=== PATIENT | female | born 1960 | race Caucasian/White ===

== ENCOUNTER → 2017-08-09 | Outpatient (CLI) | payer BC, OTHER ==
--- NOTE | 2017-08-09 13:57 | EKG REPORT ---
SEVERITY:- NORMAL ECG - SINUS RHYTHM : Confirmed by: Anthony Gomez 09-Aug-2017 13:57:03
[2017-08-09 14:02] LABS: ABSOLUTE EOSINOPHILS # (AUTO) 0.1 10^3/uL (0.0-0.6); ABSOLUTE LYMPHOCYTES (AUTO) 2.3 10^3/uL (0.5-4.7); ABSOLUTE MONOCYTES (AUTO) 0.4 10^3/uL (0.1-1.4); ABSOLUTE NEUT (AUTO) 2.6 10^3/uL (1.7-8.2); BASOPHILS % (AUTO) 0.6 % (0-2); EOSINOPHILS % (AUTO) 1.9 % (0-6); HEMATOCRIT 43.5 % (36.0-47.0); HEMOGLOBIN 14.6 g/dL (12.0-15.5); HGB HCT DIFFERENCE 0.3; LYMPHOCYTES % (AUTO) 41.5 % (13-45); MEAN CORPUSCULAR HEMOGLOBIN 27.8 pg (27.0-33.4); MEAN CORPUSCULAR HGB CONC 33.6 g/dL (32.0-36.0); MEAN CORPUSCULAR VOLUME 83 fl (80-97); MONOCYTES % (AUTO) 7.4 % (3-13); RED BLOOD COUNT 5.25 10^6/uL (3.72-5.28); RED CELL DISTRIBUTION WIDTH 14.3 % (11.5-14.0); SEGMENTED NEUTROPHILS % (AUTO) 48.6 % (42-78); WHITE BLOOD COUNT 5.4 10^3/uL (4.0-10.5)
[2017-08-09 14:28] LABS: ANION GAP 15 (5-19); BLOOD UREA NITROGEN 15 mg/dL (7-20); CALCIUM 9.8 mg/dL (8.4-10.2); CARBON DIOXIDE 26 mmol/L (22-30); CHLORIDE 103 mmol/L (98-107); CREATININE RESULT 0.83 mg/dL (0.52-1.25); GLUCOSE 118 mg/dL (75-110); POTASSIUM 4.4 mmol/L (3.6-5.0); SODIUM 143.7 mmol/L (137-145)
--- NOTE | 2017-08-09 14:56 | RADIOLOGY REPORT (SQ) ---
EXAM DESCRIPTION: CHEST PA/LATERAL COMPLETED DATE/TIME: 08/09/2017 2:06 pm REASON FOR STUDY: PRE OP COMPARISON: 04/30/2012 EXAM PARAMETERS: NUMBER OF VIEWS: two views TECHNIQUE: Digital Frontal and Lateral radiographic views of the chest acquired. RADIATION DOSE: NA LIMITATIONS: none FINDINGS: LUNGS AND PLEURA: No opacities, masses or pneumothorax. No pleural effusion. MEDIASTINUM AND HILAR STRUCTURES: No masses or contour abnormalities. HEART AND VASCULAR STRUCTURES: Heart normal size. No evidence for failure. BONES: No acute findings. HARDWARE: None in the chest. OTHER: No other significant finding. IMPRESSION: NO SIGNIFICANT RADIOGRAPHIC FINDING IN THE CHEST. TECHNICAL DOCUMENTATION: JOB ID: [id number] [employer]- All Rights Reserved
[2017-08-09 15:24] LABS: APPEARANCE,URINE SLIGHTLY-CLOUDY; BILIRUBIN,URINE NEGATIVE (NEGATIVE); GLUCOSE, URINE >=500 mg/dL (NEGATIVE); KETONES,URINE NEGATIVE (NEGATIVE); LEUKOCYTE ESTERASE,URINE NEGATIVE (NEGATIVE); NITRITE,URINE NEGATIVE (NEGATIVE); PROTEIN,URINE NEGATIVE (NEGATIVE); URINE SPECIFIC GRAVITY 1.026
== END ==
LOC: OD 13:08
PROVIDERS: ATTEND Orthopaedic Surgery
DX: Z01.818 Encounter for other preprocedural examination (principal)
CPT/HCPCS: 36415; 71020; 80048; 81001; 85025; 93005; 93010

== ENCOUNTER 2017-08-23 06:26 | Inpatient (IN) | payer BC, OTHER ==
[~2017-08-23 06:26] MED LIST: BUPIVACAINE INJ/PF LIPOSOME/PF 266 MG/20 ML SDV INJ PRN; CEFAZOLIN INJ 1 GM VIAL IV PRN; IBUPROFEN 800 MG in NORMAL SALINE 250 ML IV PRN; LACTATED RINGERS 1000 ML IV PRN; LANSOPRAZOLE 15 MG TAB.RAP.DR PO PRN; LIDOCAINE 0.5% INJ-PF (5 MG/ML) 50 ML SDV SUBCUT PRN; OXYCODONE HCL SR 10 MG TABLET PO PRN; VANCOMYCIN HCL 1,000 MG in DEXTROSE 5%-WATER 250 ML IV PRN
[2017-08-23] MEDS ORDERED: FENTANYL CITRATE INJ/PF 100 MCG/2 ML AMPUL ONE (10:02)
[2017-08-23] MEDS ORDERED: MIDAZOLAM 2 MG/2 ML INJ ONE (10:02)
[2017-08-23] MEDS ORDERED: DEXAMETHASONE SOD PHOSPHATE INJ 4 MG/1 ML VIAL ONE (10:03)
[2017-08-23] MEDS ORDERED: ONDANSETRON HCL INJ/PF 4 MG/2 ML SDV ONE (10:03)
[2017-08-23] MEDS ORDERED: TRANEXAMIC ACID INJ/PF 1,000 MG/10 ML SDV IV ONE ×3 (10:04→18:00)
[2017-08-23] MEDS ORDERED: MORPHINE SULFATE 10 MG/ML INJ ONE (10:04)
[2017-08-23] MEDS ORDERED: PROPOFOL INJ 200 MG/20 ML VIAL IV ONE (10:04)
[2017-08-23] MEDS ORDERED: THROMBIN (BOVINE) TOPICAL 20000 UNIT VIAL ONE (10:09)
[2017-08-23] MEDS ORDERED: THROMBIN (BOVINE) 5000 UNIT EPITAXIS KIT ONE (10:09)
[2017-08-23] MEDS ORDERED: BUPIVACAINE INJ/PF LIPOSOME/PF 266 MG/20 ML SDV ONE (10:09)
[2017-08-23] MEDS ORDERED: DIPHENHYDRAMINE HCL 50 MG/ML VIAL IV PRN ×2 (11:16→11:52)
[2017-08-23] MEDS ORDERED: PROMETHAZINE HCL INJ 25 MG/1 ML VIAL IV PRN ×2 (11:16)
[2017-08-23] MEDS ORDERED: MEPERIDINE HCL/PF INJ 25 MG/1 ML DISP.SYRIN IV PRN (11:16)
[2017-08-23] MEDS ORDERED: MORPHINE SULFATE 10 MG/ML INJ IV PRN ×3 (11:16→11:52)
[2017-08-23] MEDS ORDERED: FENTANYL CITRATE INJ/PF 100 MCG/2 ML AMPUL IV PRN ×3 (11:16)
[2017-08-23] MEDS ORDERED: INSULIN GLARGINE,HUM.REC.ANLOG 1,000 UNIT/10 ML UNIT SUBCUT PRN (11:50)
[2017-08-23] MEDS ORDERED: LIRAGLUTIDE IM PRN (11:50)
--- NOTE | 2017-08-23 11:50 | Operative Report ---
Operative Report DATE OF SURGERY: 08/23/17 PREOPERATIVE DIAGNOSIS: Right knee arthritis OPERATION: Right knee arthroplasty SURGEON: SHRUTHI VILLANUEVA ANESTHESIA: Spinal TISSUE REMOVED OR ALTERED: Bone to pathology ESTIMATED BLOOD LOSS: 100 PROCEDURE: Implants used: Femur: Chema triathlon size 4 CR femur Tibia: 3 tibia Tibial liner: 9 mm CS insert Patella: 32 mm oval patella Procedure with the patient supine on the operating table the right the limb is prepped and draped in a sterile fashion. The limb was elevated for exsanguination and the tourniquet inflated to 280 torr. A standard midline median parapatellar approach the knee is taken. Access is gained to the femoral canal through the intercondylar notch. Intramedullary alignment instrumentation used to resect 10 mm of distal femur in 5 of valgus. Sizing guide indicated a size 4 femur. Appropriate cutting jig is then used to fashion anterior posterior and chamfer cuts. A trial reduction femurs performed and this is judged to be adequate. Attention was next turned to the tibia. Using an extra medullary alignment system 9 millimeters was resected off the lateral tibial plateau. This is sized to a size 3 tibia. A trial reduction was now performed with a for femur and a 3 tibia using a 9 millimeters spacer. It is full extension and central patellofemoral tracking. The articular surface the patella was next resected using an oscillating saw. All trial implants were removed. Polymethylmethacrylate is mixed and used to cement the above implants in place. On adequate curing the cement excess cement was removed the tourniquet was deflated hemostasis obtained the wound is then closed in layers using interrupted Vicryl followed by liz. A sterile compressive dressing was applied and the patient returned to recovery room in satisfactory condition.
[2017-08-23] MEDS ORDERED: ONDANSETRON 4 MG TAB.RAPDIS PO PRN ×2 (11:52→13:00)
[2017-08-23] MEDS ORDERED: ONDANSETRON HCL INJ/PF 4 MG/2 ML SDV IV PRN ×2 (11:52→13:00)
[2017-08-23] MEDS ORDERED: MAG HYDROX/AL HYDROX/SIMETH SUSP 30 ML UDCUP PO PRN ×2 (11:52→13:00)
[2017-08-23] MEDS ORDERED: RINGERS SOLUTION,LACTATED 1,000 ML IV PRN (11:52)
[2017-08-23] MEDS ORDERED: ZOLPIDEM TARTRATE 5 MG TABLET PO PRN ×2 (11:52→13:00)
[2017-08-23] MEDS ORDERED: ACETAMINOPHEN 325 MG TABLET PO PRN (11:52)
[2017-08-23] MEDS ORDERED: DEXTROSE 40% GEL 15 GM TUBE PO PRN (12:37)
[2017-08-23] MEDS ORDERED: DEXTROSE 50%-WATER SYRINGE 25 GM/50 ML DOSE IV PRN (12:37)
[2017-08-23] MEDS ORDERED: DEXTROSE 40% GEL 15 GM TUBE X 2 PO PRN (12:37)
[2017-08-23] MEDS ORDERED: DEXTROSE 50%-WATER SYRINGE 12.5 GM/25 ML DOSE IV PRN (12:37)
[2017-08-23] MEDS ORDERED: GLUCAGON,HUMAN RECOMB 1 MG INJ IM PRN (12:37)
--- NOTE | 2017-08-23 13:27 | RADIOLOGY REPORT (SQ) ---
EXAM DESCRIPTION: KNEE RIGHT 2 VIEWS COMPLETED DATE/TIME: 08/23/2017 1:05 pm REASON FOR STUDY: Post OP -Long Cassette in PACU M17.11 UNILATERAL PRIMARY OSTEOARTHRITIS, RIGHT KN EE COMPARISON: None. NUMBER OF VIEWS: Two views. TECHNIQUE: AP and lateral radiographic images acquired of the right knee. LIMITATIONS: None. FINDINGS: MINERALIZATION: Normal. BONES: Total knee arthroplasty in good position. JOINT: See above. SOFT TISSUES: No soft tissue swelling. No radio-opaque foreign body. OTHER: No other significant finding. IMPRESSION: Right total knee arthroplasty good position. TECHNICAL DOCUMENTATION: JOB ID: [id number] [employer]- All Rights Reserved
[2017-08-23] MEDS: MORPHINE SULFATE 10 MG/ML INJ IM PRN (17:08)
[2017-08-23] MEDS: SENNOSIDES/DOCUSATE 8.6-50 MG 1 EACH TABLET PO SCH (17:46)
[2017-08-23] MEDS: DULOXETINE HCL 30 MG CAPSULE.DR PO SCH (17:46)
[2017-08-23] MEDS ORDERED: ACETAMINOPHEN 100 ML IV ONE (17:52)
[2017-08-23] MEDS: ASPIRIN 81 MG TABLET, ENT COATED PO SCH (21:48)
[2017-08-23] MEDS: METOPROLOL TARTRATE 25 MG TABLET PO SCH (21:48)
[2017-08-23] MEDS: INSULIN LISPRO 100 UNIT/ML 3 ML VIAL SUBCUT PRN (21:48)
[2017-08-23] MEDS: ATORVASTATIN CALCIUM 20 MG TABLET PO SCH (21:48)
[2017-08-23] MEDS: OXYCODONE HCL SR 10 MG TABLET PO SCH (21:49)
[2017-08-23] MEDS: MORPHINE SULFATE 10 MG/ML INJ IV PRN (23:16)
[2017-08-23] MEDS ORDERED: VANCOMYCIN HCL 1,000 MG in DEXTROSE 5%-WATER 250 ML IV ONE (23:52)
[2017-08-24] MEDS: MORPHINE SULFATE 10 MG/ML INJ IV PRN ×2 (03:44→13:10)
[2017-08-24] MEDS: LANSOPRAZOLE 30 MG TAB.RAP.DR PO SCH (06:17)
[2017-08-24 06:27] LABS: HEMATOCRIT 38.8 % (36.0-47.0); HEMOGLOBIN 12.9 g/dL (12.0-15.5); HGB HCT DIFFERENCE -0.1; MEAN CORPUSCULAR HEMOGLOBIN 27.9 pg (27.0-33.4); MEAN CORPUSCULAR HGB CONC 33.2 g/dL (32.0-36.0); MEAN CORPUSCULAR VOLUME 84 fl (80-97); RED BLOOD COUNT 4.63 10^6/uL (3.72-5.28); RED CELL DISTRIBUTION WIDTH 13.9 % (11.5-14.0); WHITE BLOOD COUNT 11.8 10^3/uL (4.0-10.5)
[2017-08-24 06:34] LABS: ANION GAP 11 (5-19); BLOOD UREA NITROGEN 14 mg/dL (7-20); CALCIUM 9.1 mg/dL (8.4-10.2); CARBON DIOXIDE 23 mmol/L (22-30); CHLORIDE 103 mmol/L (98-107); CREATININE RESULT 0.71 mg/dL (0.52-1.25); GLUCOSE 118 mg/dL (75-110); SODIUM 136.7 mmol/L (137-145)
--- NOTE | 2017-08-24 06:58 | PDOC PROGRESS REPORT ---
Subjective Progress Note for:: 08/24/17 Subjective:: Patient complains of pain overnight Reason For Visit: RIGHT KNEE ARTHRITIS Physical Exam Vital Signs: Temp Pulse Resp BP Pulse Ox 36.6 C 75 16 100/59 L 95 08/24/17 04:00 08/24/17 04:00 08/24/17 04:00 08/24/17 04:00 08/24/17 04:00 Intake & Output 08/22/17 08/23/17 08/24/17 06:59 06:59 06:59 Intake Total 4523 Output Total 2050 Balance 2473 Weight 98.88 kg General appearance: PRESENT: no acute distress Head exam: PRESENT: normocephalic Respiratory exam: PRESENT: unlabored Cardiovascular exam: PRESENT: RRR Pulses: PRESENT: +1 pedal pulses bilateral GI/Abdominal exam: PRESENT: soft Rectal exam: PRESENT: deferred Musculoskeletal exam: PRESENT: other - Right lower extremity dressing clean dry and intact. Distal neurovascular examination is intact. Results Laboratory Results: 08/24/17 05:31 08/24/17 05:31 08/24/17 08/24/17 05:31 05:31 WBC 11.8 H RBC 4.63 Hgb 12.9 Hct 38.8 MCV 84 MCH 27.9 MCHC 33.2 RDW 13.9 Plt Count 140 L Sodium 136.7 L Potassium 5.0 Chloride 103 Carbon Dioxide 23 Anion Gap 11 BUN 14 Creatinine 0.71 Est GFR ( Amer) > 60 Est GFR (Non-Af Amer) > 60 Glucose 118 H Calcium 9.1 Impressions: Knee X-Ray 08/23/17 11:53 IMPRESSION: Right total knee arthroplasty good position. Status: Imported from PACS Assessment & Plan - Diagnosis (1) Arthritis of right knee Is this a current diagnosis for this admission?: Yes Plan: 57-year-old white female postop day 1 from right knee arthroplasty. Minimal progress yesterday with physical therapy because of delayed clearing of the anesthetic. Anticipate physical therapy for weightbearing as tolerated today and potential discharge home tomorrow with [facility]. - Time Time Spent with patient: 15-24 minutes Anticipated discharge: Home with Homehealth Within: within 24 hours
[2017-08-24] MEDS: OXYCODONE HCL IR 5 MG TABLET PO PRN ×2 (08:00→19:12)
[2017-08-24] MEDS: METOPROLOL TARTRATE 25 MG TABLET PO SCH ×2 (09:58→21:33)
[2017-08-24] MEDS: OXYCODONE HCL SR 10 MG TABLET PO SCH ×2 (09:59→21:33)
[2017-08-24] MEDS ORDERED: LISINOPRIL 5 MG TABLET PO SCH (10:00)
[2017-08-24] MEDS ORDERED: OXYBUTYNIN CHLORIDE 5 MG TABLET PO SCH (10:00)
[2017-08-24] MEDS: DULOXETINE HCL 30 MG CAPSULE.DR PO SCH ×2 (10:00→17:29)
[2017-08-24] MEDS: SENNOSIDES/DOCUSATE 8.6-50 MG 1 EACH TABLET PO SCH ×2 (10:00→17:29)
[2017-08-24] MEDS ORDERED: PRENATAL VITAMIN W DHA CAPSULE PO SCH (10:00)
[2017-08-24] MEDS: MORPHINE SULFATE 10 MG/ML INJ IM PRN (11:33)
[2017-08-24] MEDS ORDERED: TRANEXAMIC ACID INJ/PF 1,000 MG/10 ML SDV IV ONE (14:00)
[2017-08-24] MEDS: INSULIN LISPRO 100 UNIT/ML 3 ML VIAL SUBCUT PRN ×2 (17:27→21:33)
[2017-08-24] MEDS: ASPIRIN 81 MG TABLET, ENT COATED PO SCH (21:33)
[2017-08-24] MEDS: ATORVASTATIN CALCIUM 20 MG TABLET PO SCH (21:34)
[2017-08-25] MEDS: OXYCODONE HCL IR 5 MG TABLET PO PRN ×2 (01:17→09:09)
[2017-08-25] MEDS: LANSOPRAZOLE 30 MG TAB.RAP.DR PO SCH (05:32)
--- NOTE | 2017-08-25 07:18 | PDOC DISCHARGE SUMMARY ---
General - Admit/Disc Date/PCP Admission Date/Primary Care Provider: 08/23/17 07:07 EDMUNDO HERNANDEZ PA-C Discharge Date: 08/25/17 - Discharge Diagnosis (1) Arthritis of right knee Is this a current diagnosis for this admission?: Yes - Additional Information Resuscitation Status: Full Code Discharge Diet: As Tolerated, Regular Discharge Activity: Balance Activity w/Rest, No Driving, No tub bath Home Medications: Atorvastatin Calcium [Lipitor 20 mg Tablet] 20 mg PO QHS 08/23/17 Celecoxib [Celebrex 200 mg Capsule] 200 mg PO DAILYP PRN 08/23/17 Duloxetine HCl [Cymbalta] 60 mg PO DAILY 08/23/17 Empagliflozin/Metformin HCl [Synjardy 12.5-1,000 mg Tablet] 1 tab PO Q12 Insulin Glargine,Hum.rec.anlog [Lantus Solostar] 10 units SQ QHS 08/23/17 Liraglutide [Victoza 2-Milton] 0.3 ml SQ DAILY 08/23/17 Lisinopril [Zestril] 5 mg PO DAILY 08/23/17 Metoprolol Tartrate [Lopressor 25 mg Tablet] 12.5 mg PO Q12 08/23/17 Omeprazole 40 mg PO Q6AM 08/23/17 Oxybutynin Chloride [Ditropan 5 mg Tablet] 5 mg PO Q12 08/23/17 Aspirin [Ecotrin 81 mg EC Tablet] 81 mg PO QHS tabec 08/25/17 Oxycodone HCl [Oxy-Ir 5 mg Tablet] 5 mg PO Q6HP PRN tablet 08/25/17 History of Present Illness History of Present Illness: HINA MENDEZ is a 57 year old female progressive right knee pain and functional disability secondary osteoarthritis. Patient is admitted for elective right knee arthroplasty. Hospital Course Hospital Course: Patient is admitted through the operating room where she undergoes uncomplicated right knee arthroplasty. She was returned to the floor in satisfactory condition. Because of the late resolution of her regional anesthetic physical therapy was not able to ambulate the patient on the first day. Pain control was adequate. Blood glucose control was adequate. Hematocrit remains above 35%. Starting on her first postoperative day the patient makes excellent progress with physical therapy and is subsequent ready for discharge home on postop day 2 Physical Exam Vital Signs: Temp Pulse Resp BP Pulse Ox 37.2 C 90 16 113/65 99 08/25/17 00:30 08/25/17 00:30 08/25/17 00:30 08/25/17 00:30 08/25/17 00:30 Intake & Output 08/24/17 08/25/17 08/26/17 06:59 06:59 06:59 Intake Total 4643 1472 Output Total 2050 Balance 2593 1472 Weight 98.88 kg General appearance: PRESENT: no acute distress Head exam: PRESENT: normocephalic Respiratory exam: PRESENT: unlabored Cardiovascular exam: PRESENT: RRR Pulses: PRESENT: +1 pedal pulses bilateral Vascular exam: PRESENT: normal capillary refill GI/Abdominal exam: PRESENT: soft Rectal exam: PRESENT: deferred Extremities exam: PRESENT: other - Right lower extremity wrap is removed. The underlying occlusive dressings clean dry and intact. There is some minor skin bruising and swelling. There is minimal pedal edema. Distal neurovascular examination is intact. Neurological exam: PRESENT: alert, awake, oriented to person, oriented to place , oriented to time, oriented to situation. ABSENT: motor sensory deficit Psychiatric exam: PRESENT: appropriate affect, normal mood. ABSENT: homicidal ideation, suicidal ideation Skin exam: PRESENT: dry, intact, warm. ABSENT: cyanosis, rash Results Laboratory Results: 08/24/17 05:31 08/24/17 05:31 Impressions: Knee X-Ray 08/23/17 11:53 IMPRESSION: Right total knee arthroplasty good position. Status: Imported from PACS Plan Discharge Plan: Patient to be discharged home with home health nursing, home health physical therapy, wheeled walker, bedside commode. Follow-up will be with Dr. Moya in the [facility] for surgery in 2 weeks for staple removal.
[2017-08-25 08:16] LABS: HEMOGLOBIN 11.8 g/dL (12.0-15.5); HGB HCT DIFFERENCE 0.4; MEAN CORPUSCULAR HEMOGLOBIN 27.9 pg (27.0-33.4); MEAN CORPUSCULAR HGB CONC 33.7 g/dL (32.0-36.0); MEAN CORPUSCULAR VOLUME 83 fl (80-97); RED BLOOD COUNT 4.23 10^6/uL (3.72-5.28); RED CELL DISTRIBUTION WIDTH 14.3 % (11.5-14.0); WHITE BLOOD COUNT 12.2 10^3/uL (4.0-10.5)
[2017-08-25 09:03] VITALS: BP 118/66
== END 2017-08-25 09:54 | disposition home health service (06) | DRG 470 ==
LOC: INOR 07:07 → 4S 13:30
PROVIDERS: ADMIT Orthopaedic Surgery; ATTEND Orthopaedic Surgery
PROC: 0SRC069 Replacement of Right Knee Joint with Oxidized Zirconium on Polyethylene Synthetic Substitute, Cemented, Open Approach (ICD-10-PCS; principal; 2017-08-23 11:15)
DX: M17.11 Unilateral primary osteoarthritis, right knee (principal); Z79.899 Other long term (current) drug therapy; Z83.3 Family history of diabetes mellitus; Z82.49 Family history of ischemic heart disease and other diseases of the circulatory system
CPT/HCPCS: 01402; 36415; 80048; 82962; 85027; 88305; 88311; 94799; C9290; J0131; J0690; J1100; J1741; J1815; J2250; J2270; J2405; J2704; J3010; J3370; J3490; J7050; J7060

== ENCOUNTER → 2018-05-18 | Outpatient (CLI) | payer BC, OTHER ==
--- NOTE | 2018-05-18 11:58 | WOMENS IMAGING REPORT ---
EXAM DESCRIPTION: BILAT SCREENING MAMMO W/CAD COMPLETED DATE/TIME: 05/18/2018 9:59 am REASON FOR STUDY: SCREENING MAMMO Z12.31 ENCNTR SCREEN MAMMOGRAM FOR MALIGNANT NEOPLASM OF [place] COMPARISON: 2012, 2015 TECHNIQUE: Standard craniocaudal and mediolateral oblique views of each breast recorded using digita l acquisition. LIMITATIONS: None. FINDINGS: No masses, calcifications or architectural distortion. No areas of suspicion. Read with the assistance of CAD. .[facility] - R2 Cenova Version 1.3 .[facility] - R2 Cenova Version 1.3 .[facility] - R2 Cenova Version 2.4 .[facility] [place] R2 Cenova Version 2.4 .[facility] - R2 Lamp Cleaner Version 9.2 IMPRESSION: NORMAL MAMMOGRAM. BIRADS 1. BREAST DENSITY: a. The breasts are almost entirely fatty. BIRAD: 1 NEGATIVE RECOMMENDATION: ROUTINE SCREENING Please continue yearly bilateral screening mammography/tomosynthesis in May 2019 COMMENT: The patient has been notified of the results by letter per SA requirements. Additional no tification policies are in place for contacting patient with suspicious or incomplete findings. Quality ID #[id number]: The [employer] recommends an annual screening mammogram for women aged 40 years or over. This facility utilizes a reminder system to ensure that all patients receive reminder letters, and/or direct phone calls for appointments. This includes reminders for routine scr eening mammograms, diagnostic mammograms, or other Breast Imaging Interventions when appropriate. Th is patient will be placed in the appropriate reminder system. The [employer] (ACR) has developed recommendations for screening MRI of the breast s in certain patient populations, to be used in conjunction with mammography. Breast MRI surveillanc e may be appropriate for women with more than 20% lifetime risk of developing breast cancer as deter mined by genetic testing, significant family history of the disease, or history of mantle radiation f or Hodgkins Disease. ACR Practice Guidelines 2008. TECHNICAL DOCUMENTATION: FINDING NUMBER: (1) ASSESSMENT: (1) JOB ID: [id number] [employer]- All Rights Reserved Reading location - IP/workstation name: [email or web address]
== END ==
LOC: WI 09:46
PROVIDERS: ATTEND Physician Assistant
DX: Z12.31 Encounter for screening mammogram for malignant neoplasm of breast (principal)
CPT/HCPCS: 77067

== ENCOUNTER 2019-07-17 20:05 | Emergency (ER) | payer OTHER ==
[2019-07-17] MEDS ORDERED: ASPIRIN 81 MG TABLET, CHEWABLE PO ONE (20:06)
[2019-07-17 20:21] LABS: ABSOLUTE EOSINOPHILS # (AUTO) 0.1 10^3/uL (0.0-0.6); ABSOLUTE LYMPHOCYTES (AUTO) 2.6 10^3/uL (0.5-4.7); ABSOLUTE MONOCYTES (AUTO) 0.5 10^3/uL (0.1-1.4); BASOPHILS % (AUTO) 0.7 % (0-2); EOSINOPHILS % (AUTO) 1.6 % (0-6); HEMATOCRIT 43.3 % (36.0-47.0); HEMOGLOBIN 14.2 g/dL (12.0-15.5); LYMPHOCYTES % (AUTO) 40.8 % (13-45); MEAN CORPUSCULAR HEMOGLOBIN 27.3 pg (27.0-33.4); MEAN CORPUSCULAR HGB CONC 32.9 g/dL (32.0-36.0); MEAN CORPUSCULAR VOLUME 83 fl (80-97); MONOCYTES % (AUTO) 8.4 % (3-13); PLATELET COUNT 188 10^3/uL (150-450); RED BLOOD COUNT 5.21 10^6/uL (3.72-5.28); RED CELL DISTRIBUTION WIDTH 14.8 % (11.5-14.0); SEGMENTED NEUTROPHILS % (AUTO) 48.5 % (42-78); TOTAL CELLS COUNTED % (AUTO) 100 %; WHITE BLOOD COUNT 6.3 10^3/uL (4.0-10.5)
--- NOTE | 2019-07-17 20:23 | ER Document Report ---
ED General - General Chief Complaint: Arrhythmia Stated Complaint: SVT Time Seen by Provider: 07/17/19 20:20 Primary Care Provider: EDMUNDO HERNANDEZ PA-C [Primary Care Provider] - Follow up as needed TRAVEL OUTSIDE OF THE [place] IN LAST 30 DAYS: No - Related Data Allergies/Adverse Reactions: No Known Allergies Allergy (Verified 09/11/15 13:47) Past Medical History - Social History Smoking Status: Never Smoker Family History: Reviewed & Not Pertinent - Past Medical History Cardiac Medical History: Reports: Hx Hypertension Denies: Hx Atrial Fibrillation, Hx Congestive Heart Failure, Hx Coronary Artery Disease, Hx Heart Attack, Hx Hypercholesterolemia, Hx Peripheral Vascular Disease, Hx Pulmonary Embolism, Hx Heart Murmur Pulmonary Medical History: Reports: Hx Bronchitis Denies: Hx Asthma, Hx COPD, Hx Pneumonia, Hx Respiratory Failure, Hx Sleep Apnea, Hx Tuberculosis Neurological Medical History: Denies: Hx Cerebrovascular Accident, Hx Seizures Endocrine Medical History: Reports: Hx Diabetes Mellitus Type 2. Denies: Hx Graves' Disease, Hx Hyperthyroidism, Hx Hypothyroidism Renal/ Medical History: Reports: Hx Ovarian Cysts. Denies: Hx End Stage Renal Disease, Hx Kidney Stones, Hx Peritoneal Dialysis, Hx Pelvic Inflammatory Dise ase Malignancy Medical History: Denies: Hx Breast Cancer, Hx Cervical Cancer, Hx Leukemia, Hx Lung Cancer, Hx Ovarian Cancer GI Medical History: Reports: Hx Hiatal Hernia. Denies: Hx Crohn's Disease, Hx Gastroesophageal Reflux Disease, Hx Hepatitis, Hx Irritable Bowel, Hx Liver Failure, Hx Pancreatitis, Hx Ulcer Musculoskeletal Medical History: Reports Hx Arthritis - knees, Denies Hx Fibromyalgia, Denies Hx Muscular Dystrophy, Denies Hx Systemic Lupus Erythematosus Psychiatric Medical History: Reports: Hx Anxiety, Hx Depression Denies: Hx Bipolar Disorder, Hx Post Traumatic Stress Disorder, Hx Schizophrenia Traumatic Medical History: Denies: Hx Fractures Infectious Medical History: Denies: Hx Hepatitis, Hx HIV Past Surgical History: Reports: Hx Abdominal Surgery - lap band, Hx Section - X2, Hx Orthopedic Surgery - Right knee. Denies: Hx Appendectomy, Hx Bowel Surgery, Hx Cholecystectomy, Hx Colostomy, Hx Coronary Artery Bypass Graft, Hx Gastric Bypass Surgery, Hx Herniorrhaphy, Hx Hysterectomy, Hx Mastectomy, Hx Open Heart Surgery, Hx Pacemaker, Hx Tonsillectomy, Hx Tubal Ligation - Immunizations Hx Diphtheria, Pertussis, Tetanus Vaccination: Yes Hx Pneumococcal Vaccination: 09/20/08 Physical Exam - Vital signs Vitals: Pulse Ox 97 07/17/19 20:05 - Notes Notes: Patient was brought in by paramedics with an episode of SVT but when she was in the store. Some tightness in her throat and jaw pain but had no chest pain at all. She has some shortness of breath but no nausea vomiting or diaphoresis. She was given adenosine and converted spontaneously. She does have a history of SVT with a last episode was several years ago. [place] without relief. She denies any recent fevers cough nausea vomiting bowel pain or diarrhea and has been compliant with her medications. She said the jaw pain with this. Past medical history reason for diabetes and hypertension she has no history of coronary artery disease stress test about 5 years ago that was negative Meds and allergies of been reviewed Review of systems all systems reviewed were acutely negative except as in HPI BP was 152/72 PHYSICAL EXAMINATION: Signs noted to his note reviewed GENERAL: Well-appearing, well-nourished and in no acute distress. HEAD: Atraumatic, normocephalic. EYES: Pupils equal round and reactive to light, extraocular movements intact, sclera anicteric, conjunctiva are normal. ENT: nares patent, oropharynx clear without exudates. Moist mucous membranes. NECK: Normal range of motion, supple without lymphadenopathy LUNGS: Breath sounds clear to auscultation bilaterally and equal. No wheezes rales or rhonchi. HEART: Regular rate and rhythm without murmurs ABDOMEN: Soft, nontender, normoactive bowel sounds. No guarding, no rebound. No masses appreciated. EXTREMITIES: Tender trace edema in the ankles no palpable cords NEUROLOGICAL: No focal neurological deficits. Moves all extremities spontaneo usly and on command. PSYCH: Normal mood, normal affect. SKIN: Warm, Dry, normal turgor, no rashes or lesions noted. Back is nontender Course - Re-evaluation Re-evalutation: 07/17/19 23:05 The patient is remained stable she is been on a monitoring and evaluation advisor with notes of arrhythmias Medical decision making patient with a history of SVT presents with an episode of SVT for pain which she has had before. She has no history of coronary artery disease. Troponin is negative do not feel that she needs a repeat she had no chest pain with this is patient is feeling. Better and can be discharged home - Vital Signs Vital signs: Temp Pulse Resp BP Pulse Ox 98.3 F 97 07/17/19 22:44 07/17/19 20:05 - Laboratory Result Diagrams: 07/17/19 20:10 07/17/19 20:10 Laboratory results interpreted by me: 07/17/19 07/17/19 20:10 20:10 RDW 14.8 H Alkaline Phosphatase 129 H - EKG Interpretation by Me When compared to previous EKG there are: Other Additional EKG results interpreted by me: 07/17/19 23:07 Shows a sinus tachycardia with a rate of 107. Normal axis and QRS and no nonspecific ST wave changes. Discharge - Discharge Clinical Impression: SVT (supraventricular tachycardia) Disposition: HOME, SELF-CARE Instructions: Paroxysmal Supraventricular Tachycardia ([facility]) Additional Instructions: Please review the discharge instructions. return To the ED if you get worse or have any additional symptoms Follow-up with your family doctor in 2 to 3 days Referrals: EDMUNDO HERNANDEZ PA-C [Primary Care Provider] - Follow up in 3-5 days
[2019-07-17 20:39] LABS: ALBUMIN 4.3 g/dL (3.5-5.0); ALKALINE PHOSPHATASE 129 U/L (38-126); ANION GAP 8 (5-19); ASPARTATE AMINO TRANSFERASE 32 U/L (14-36); BILIRUBIN,DIRECT 0.2 mg/dL (0.0-0.4); BILIRUBIN,TOTAL 0.7 mg/dL (0.2-1.3); BLOOD UREA NITROGEN 12 mg/dL (7-20); CALCIUM 9.9 mg/dL (8.4-10.2); CARBON DIOXIDE 27 mmol/L (22-30); CHLORIDE 105 mmol/L (98-107); CREATINE KINASE 53 U/L (30-135); GLUCOSE 103 mg/dL (75-110); POTASSIUM 4.2 mmol/L (3.6-5.0)
[2019-07-17 20:50] LABS: CREATINE KINASE MB 0.39 ng/mL (<4.55)
[2019-07-17 20:53] LABS: TROPONIN I < 0.012 ng/mL
--- NOTE | 2019-07-17 21:13 | RADIOLOGY REPORT (SQ) ---
EXAM DESCRIPTION: Chest x-ray one view, July 17, 2019 at 8:32 PM CLINICAL HISTORY: svt COMPARISON: None FINDINGS: Cardiac silhouette is within normal limits. EKG leads project over the chest. There is no focal parenchymal or pleural disease. There is no acute osseous process visualized. IMPRESSION: No evidence of acute cardiopulmonary disease.
--- NOTE | 2019-07-17 21:41 | EKG REPORT ---
SEVERITY:- OTHERWISE NORMAL ECG - SINUS TACHYCARDIA : Confirmed by: Jeovany Rios MD 17-Jul-2019 21:41:31
[2019-07-17 23:15] VITALS: BP 103/72
== END 2019-07-17 23:24 | disposition home or self-care (01) ==
LOC: ER 20:05
DX: I47.1 Supraventricular tachycardia (principal); I10 Essential (primary) hypertension; E11.9 Type 2 diabetes mellitus without complications
CPT/HCPCS: 36415; 71045; 80053; 82550; 82553; 84484; 85025; 93005; 93010; 99285